=== PATIENT | female | born 1975 | race Caucasian/White ===

== ENCOUNTER → 2017-02-13 | Outpatient (CLI) | payer BC | END | disposition home or self-care (01) | LOC: LABWHC1 15:11 | PROVIDERS: ATTEND Clinical Nurse Specialist Women's Health | DX: E03.9 Hypothyroidism, unspecified (principal); Z84.81 Family history of carrier of genetic disease | CPT/HCPCS: 36415; 84439; 84443; 84481 ==

== ENCOUNTER → 2017-02-27 | Outpatient (CLI) | payer BC | END | disposition home or self-care (01) | LOC: LABWHC1 12:55 | PROVIDERS: ATTEND Clinical Nurse Specialist Women's Health | DX: E03.9 Hypothyroidism, unspecified (principal); E72.12 Methylenetetrahydrofolate reductase deficiency; Z84.81 Family history of carrier of genetic disease | CPT/HCPCS: 36415; 81291 ==

== ENCOUNTER → 2017-08-21 | Outpatient (CLI) | payer BC ==
--- NOTE | 2017-08-22 10:36 | MM ---
Reason for exam: screening (asymptomatic). Last mammogram was performed 1 year and 10 months ago. History: Taking hormonal contraceptives beginning at age 14. Physical Findings: A clinical breast exam by your physician is recommended on an annual basis and results should be correlated with mammographic findings. MG Screening Mammo w CAD Bilateral CC and MLO view(s) were taken. Prior study comparison: October 22, 2015, bilateral MG screening mammo w CAD. The breast tissue is heterogeneously dense. This may lower the sensitivity of mammography. No significant changes when compared with prior studies. ASSESSMENT: Benign, BI-RAD 2 RECOMMENDATION: Routine screening mammogram of both breasts in 1 year.
== END | disposition home or self-care (01) ==
LOC: RADMAMWWP 16:40
PROVIDERS: ATTEND Obstetrics & Gynecology
DX: Z12.31 Encounter for screening mammogram for malignant neoplasm of breast (principal)

== ENCOUNTER → 2017-11-06 | Outpatient (CLI) | payer BC ==
[~2017-11-06] MED LIST: ALBUTEROL NEB (CONC) 2.5 MG/0.5 ML INHALATION ONE; LACTATED RINGERS 1,000 ML IV ONE; LIDOCAINE 2% (PF) 20 MG/ML 2 ML AMP INHALATION ONE
[2017-11-06 20:17] LABS: Clam IgE <0.10 kU/L; Codfish IgE <0.10 kU/L; Egg White IgE <0.10 kU/L; Peanut IgE <0.10 kU/L; Scallop IgE <0.10 kU/L; Shrimp IgE <0.10 kU/L; Soybean IgE <0.10 kU/L; Walnut IgE (Food) <0.10 kU/L
[2017-11-06 20:24] LABS: Alternaria alternata IgE <0.10 kU/L; Birch IgE <0.10 kU/L; Cat Epith & Dander IgE <0.10 kU/L; Cockroach IgE <0.10 kU/L; Dermato. farinae IgE <0.10 kU/L; Dog Dander IgE <0.10 kU/L; Elm IgE <0.10 kU/L; Maple (Box Elder) IgE <0.10 kU/L; Oak IgE <0.10 kU/L; Ragweed,Common IgE <0.10 kU/L; Red Top (Bentgrass) IgE <0.10 kU/L
== END | disposition home or self-care (01) ==
LOC: LABWHC1 11:39
PROVIDERS: ATTEND Internal Medicine Critical Care Medicine
DX: R05 Cough (principal); R06.02 Shortness of breath
CPT/HCPCS: 36415; 82785; 86003

== ENCOUNTER 2017-11-13 11:43 | Day surgery (SDC) | payer BC ==
[2017-11-08 14:45] VITALS: BMI 33.5
[~2017-11-13 11:43] MED LIST changes: -ALBUTEROL NEB (CONC) 2.5 MG/0.5 ML INHALATION ONE; +LACTATED RINGERS 1,000 ML IV SCH; -LIDOCAINE 2% (PF) 20 MG/ML 2 ML AMP INHALATION ONE
[2017-11-13 12:32] VITALS: RESP 16; TEMP 99.2
[2017-11-13] MEDS: LIDOCAINE 2% (PF) 20 MG/ML 2 ML AMP INHALATION ONE ×2 (12:43→12:48)
[2017-11-13] MEDS: ALBUTEROL NEB (CONC) 2.5 MG/0.5 ML INHALATION ONE ×2 (12:43→12:48)
[2017-11-13] MEDS ORDERED: LIDOCAINE 1% 20 ML VIAL (10MG/ML) FOR IV START INTRADERMA ONE (12:45)
[2017-11-13] MEDS ORDERED: KETAMINE 10 MG/ML 20 ML VIAL ONE (12:57)
[2017-11-13] MEDS ORDERED: LIDOCAINE 1% INJ 10MG/ML (20 ML MDV) ONE (12:57)
[2017-11-13] MEDS ORDERED: MIDAZOLAM 2 MG/2 ML VIAL ONE (12:57)
[2017-11-13] MEDS ORDERED: PROPOFOL 10 MG/ML 20 ML VIAL IV ONE (12:57)
[2017-11-13] MEDS ORDERED: GLYCOPYRROLATE 0.2 MG/ML 2 ML VIAL ONE (12:57)
[2017-11-13] MEDS ORDERED: LIDOCAINE 2% INJ 20 MG/ML INTRATRACH ONE ×2 (13:02→13:06)
[2017-11-13 14:00] VITALS: BP 115/79; PULSE 106
--- NOTE | 2017-11-13 14:22 | PCN ---
PROCEDURE NOTE PROCEDURE: Bronchoscopy airway examination, therapeutic lavage, BAL. PREOP DIAGNOSIS: Possible tracheal abnormality. POSTOP DIAGNOSIS: Normal airway exam, asthma. DESCRIPTION OF PROCEDURE: There was informed consent. There was universal timeout. The operators were Dr. Bravo and Dr. Toney. The patient's procedure took place in room #2 [facility]. After the patient was adequately sedated and being fully monitored, the bronchoscope was inserted through the right nostril. It passed through the right nasopharynx into the oropharynx. The hypopharynx was identified and topicalized. The hypopharyngeal structures including anterior commissure, true cords, false cords, arytenoids, piriform sinuses, right and left vallecula and epiglottis all appeared normal. After topicalization, the bronchoscope was pushed through the glottic opening into the trachea. Trachea appeared completely normal. Pictures were taken. There was no evidence of any tracheal stenosis or tracheomalacia. There was no lesion or abnormality. Tracheal santa was sharp. Right and left mainstem were topicalized. The right upper lobe and its 3 segments, right middle lobe and its 2 segments, right lower lobe and its 5 segments, left upper lobe proper and its 2 segments, lingula and its 2 segments and the left lower lobe and its 4 segments were all found to be normal. There were very mild bronchitis consistent with maybe mild asthma. There were no significant secretions. There was no dominant mass or tumor. The bronchoscope was wedged into the right middle lobe. BAL took place. The patient tolerated the procedure well. There was no immediate complication. The patient will be recovered. Specimen will be sent to the laboratory for analysis. MMODL / IJN: [id number] /
[2017-11-13 18:39] LABS: Appearance,BF Cloudy; Nucleated Cells, Body Fluid 55 /uL; RBC, Body Fluid 13 /uL
[2017-11-13 18:40] LABS: Mononuclear WBC,Body Fluid 94 %; Polynuclear WBC,Body Fluid 6 %; Total Cells Counted,Body Fluid 100
== END 2017-11-13 14:12 | disposition home or self-care (01) ==
LOC: ORWHC2ENDO 11:43
PROVIDERS: ATTEND Internal Medicine Critical Care Medicine
DX: J45.50 Severe persistent asthma, uncomplicated (principal); E03.9 Hypothyroidism, unspecified; K21.9 Gastro-esophageal reflux disease without esophagitis; E66.9 Obesity, unspecified; Z68.33 Body mass index [BMI] 33.0-33.9, adult; Z79.3 Long term (current) use of hormonal contraceptives; Z79.890 Hormone replacement therapy; Z79.899 Other long term (current) drug therapy; Z79.51 Long term (current) use of inhaled steroids; Z88.8 Allergy status to other drugs, medicaments and biological substances; Z91.048 Other nonmedicinal substance allergy status; Z87.891 Personal history of nicotine dependence
CPT/HCPCS: 81025; 88108; 88305; 89050; 87252; 87070; 87205; 87116; 87102; 87206; 31624; J2001 ×2; J2250; J2704; 87496; 87498; 87502; 87529; 87634; 87798

== ENCOUNTER → 2017-12-04 | Outpatient (CLI) | payer BC ==
[2017-12-04 09:26] LABS: Basophils % (A) 0 %; Eosinophils # (A) 0.3 k/uL (0-0.7); Eosinophils % (A) 5 %; HGB 13.8 gm/dL (11.4-16.0); Lymphocytes # (A) 1.4 k/uL (1.0-4.8); Lymphocytes % (A) 24 %; MCH 28.3 pg (25.0-35.0); MCHC 33.7 g/dL (31.0-37.0); MCV 84.2 fL (80.0-100.0); Mean Platelet Volume 6.9; Monocytes # (A) 0.4 k/uL (0-1.0); Monocytes % (A) 6 %; Neutrophils # (A) 3.7 k/uL (1.3-7.7); Neutrophils % (A) 62 %; Platelet Count 279 k/uL (150-450); RBC 4.87 m/uL (3.80-5.40); RDW 13.1 % (11.5-15.5); WBC 5.9 k/uL (3.8-10.6)
== END | disposition home or self-care (01) ==
LOC: LABWHC1 08:54
PROVIDERS: ATTEND Internal Medicine Critical Care Medicine
DX: J45.50 Severe persistent asthma, uncomplicated (principal)
CPT/HCPCS: 36415; 85025

== ENCOUNTER 2019-04-18 23:04 | Emergency (ER) | payer BC ==
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
[2019-04-19] MEDS ORDERED: IBUPROFEN 600 MG TAB PO STA (00:28)
[2019-04-19 00:48] VITALS: BP 145/90; PULSE 90; RESP 18; TEMP 98
== END 2019-04-19 00:51 | disposition home or self-care (01) ==
LOC: EC 23:04
DX: S01.01XA Laceration without foreign body of scalp, initial encounter (principal); J45.909 Unspecified asthma, uncomplicated; E07.9 Disorder of thyroid, unspecified; Z79.51 Long term (current) use of inhaled steroids; Z79.899 Other long term (current) drug therapy; Z87.891 Personal history of nicotine dependence; W20.8XXA Other cause of strike by thrown, projected or falling object, initial encounter; Y92.814 Boat as the place of occurrence of the external cause
CPT/HCPCS: 12001; 99282

== ENCOUNTER → 2019-09-09 | Outpatient (CLI) | payer BC ==
--- NOTE | 2019-09-11 08:46 | MM ---
Reason for exam: screening (asymptomatic). Last mammogram was performed 2 years and 1 month ago. History: Taking hormonal contraceptives beginning at age 14. Physical Findings: A clinical breast exam by your physician is recommended on an annual basis and results should be correlated with mammographic findings. MG Screening Mammo w CAD Bilateral CC and MLO view(s) were taken. Prior study comparison: August 21, 2017, bilateral MG screening mammo w CAD. October 22, 2015, bilateral MG screening mammo w CAD. The breast tissue is heterogeneously dense. This may lower the sensitivity of mammography. No suspicious abnormality. No significant changes when compared with prior studies. ASSESSMENT: Negative, BI-RAD 1 RECOMMENDATION: Routine screening mammogram of both breasts in 1 year.
== END | disposition home or self-care (01) ==
LOC: RADMAMWWP 07:30
PROVIDERS: ATTEND Obstetrics & Gynecology
DX: Z12.31 Encounter for screening mammogram for malignant neoplasm of breast (principal)
CPT/HCPCS: 77067

== ENCOUNTER → 2019-09-19 | Outpatient (CLI) | payer BC ==
--- NOTE | 2019-09-19 14:17 | ECHOS ---
STRESS ECHOCARDIOGRAM DATE OF SERVICE: 09/19/2019 INDICATIONS: Chest pain. MEDICATIONS: Ventolin, Symbicort, Spiriva, omeprazole. BASELINE HEART RATE: 83 BASELINE BLOOD PRESSURE: 116/63 MAXIMUM HEART RATE: 154 MAXIMUM BLOOD PRESSURE: 194/78 85% MPHR: 150 100% MPHR: 176 METS: 9.1 MAXIMUM STAGE REACHED: III TOTAL EXERCISE TIME: 7 minutes CLINICAL INFORMATION: STRESS DATA: Heart rate is 83, pressure 116/63 mmHg. Baseline EKG showed sinus rhythm. The patient exercised on the treadmill according to Dagoberto protocol for a total of 7 minutes and achieved 9.1 METs. Max heart rate was 154, which is about 87% of maximum predicted heart rate. Maximum blood pressure was 194/78 mmHg. Clinically the patient did not have any symptoms of chest pain or discomfort and the EKG did not show any significant ST or T-wave abnormalities concerning for ischemia. ECHOCARDIOGRAM IMAGES: On echocardiogram images from parasternal long axis view, parasternal short axis view, apical 4 chamber and apical 2 chamber were obtained at the baseline images, at the peak of the heart rate as well as on recovery and the echocardiogram images showed good augmentation in the left ventricular systolic function without any evidence of wall motion abnormalities concerning for ischemia. CONCLUSION: 1. Good exercise tolerance. 2. Normal EKG in response to exercise. 3. Normal echocardiogram in response to exercise. MMODL / IJN: [id number] /
== END | disposition home or self-care (01) ==
LOC: RADNMMAIN 08:55
PROVIDERS: ATTEND Family Medicine
DX: R94.31 Abnormal electrocardiogram [ECG] [EKG] (principal)
CPT/HCPCS: 93351

== ENCOUNTER → 2021-03-29 | Outpatient (CLI) | payer BC ==
--- NOTE | 2021-03-30 15:00 | MM ---
Reason for exam: screening (asymptomatic). Last mammogram was performed 1 year and 7 months ago. History: Taking hormonal contraceptives beginning at age 14. Physical Findings: A clinical breast exam by your physician is recommended on an annual basis and results should be correlated with mammographic findings. MG Screening Mammo w CAD Bilateral CC and MLO view(s) were taken. Prior study comparison: September 09, 2019, bilateral MG screening mammo w CAD. August 21, 2017, bilateral MG screening mammo w CAD. The breast tissue is heterogeneously dense. This may lower the sensitivity of mammography. Finding: There are 3-4 typically benign grouped/clustered calcifications in the right breast. New finding since August 21, 2017 and September 09, 2019. ASSESSMENT: Incomplete: need additional imaging evaluation, BI-RAD 0 RECOMMENDATION: Special view mammogram of the right breast. [facility] will attempt to contact patient to return for supplemental views.
== END | disposition home or self-care (01) ==
LOC: RADMAMWWP 07:25
PROVIDERS: ATTEND Obstetrics & Gynecology
DX: Z12.31 Encounter for screening mammogram for malignant neoplasm of breast (principal)
CPT/HCPCS: 77067

== ENCOUNTER → 2021-04-15 | Outpatient (CLI) | payer BC ==
--- NOTE | 2021-04-18 08:40 | MM ---
Reason for exam: additional evaluation requested from abnormal screening. Last mammogram was performed 1 month ago. History: Taking hormonal contraceptives beginning at age 14. Physical Findings: Nurse did not find any significant physical abnormalities on exam. MG Work Up Mamm w CAD RT Spot compression CC, spot compression LM, and LM view(s) were taken of the right breast. Prior study comparison: March 29, 2021, bilateral MG screening mammo w CAD. September 09, 2019, bilateral MG screening mammo w CAD. The breast tissue is heterogeneously dense. This may lower the sensitivity of mammography. There are a few calcifications medial right breast not changed since 2019 when accounting for differences in technique. These results were verbally communicated with the patient and result sheet given to the patient on 04/15/21. ASSESSMENT: Benign, BI-RAD 2 RECOMMENDATION: Return to routine screening mammogram schedule for both breasts.
== END | disposition home or self-care (01) ==
LOC: RADMAMWWP 13:44
PROVIDERS: ATTEND Obstetrics & Gynecology
DX: R92.8 Other abnormal and inconclusive findings on diagnostic imaging of breast (principal)
CPT/HCPCS: 77065

== ENCOUNTER 2022-03-05 00:25 | Emergency (ER) | payer BC ==
--- NOTE | 2022-03-05 01:23 | XR ---
EXAMINATION TYPE: XR knee complete LT DATE OF EXAM: 03/05/2022 COMPARISON: NONE HISTORY: Fall. Pain TECHNIQUE: 3 views FINDINGS: I see no fracture nor dislocation. Joint spaces are normal. No sign of a joint effusion. IMPRESSION: Negative left knee exam.
--- NOTE | 2022-03-05 01:45 | CT ---
EXAMINATION TYPE: CT brain cspine wo con DATE OF EXAM: 03/05/2022 COMPARISON: CT brain 08/21/2012 HISTORY: FALL, FACIAL LACS CT DLP: 1142.4 mGycm Automated exposure control for dose reduction was used. Images of brain and cervical spine obtained with no contrast. Ventricles of normal size. No mass effect or midline shift. No sign of intracranial hemorrhage. Josh rium is intact. There is normal aeration of the mastoid sinuses. Skull base is intact. Cervical vertebra have normal alignment. No compression fracture. Minimal spurring seen of the endpla shanita at C5-6 and C6-7. Facet joints are intact. IMPRESSION: Negative CT scan of the cervical spine. No evidence of traumatic injury. Negative CT scan of the brain. No adverse change.
[2022-03-05] MEDS ORDERED: ACETAMINOPHEN TAB 500 MG TAB PO STA (01:50)
[2022-03-05] MEDS ORDERED: LIDOCAINE/EPINEPHR/TETRACAINE 5 ML BOTTLE TOPICAL ONE (01:50)
--- NOTE | 2022-03-05 01:54 | CT ---
EXAMINATION TYPE: CT facial bones wo con DATE OF EXAM: 03/05/2022 COMPARISON: None HISTORY: FALL, FACIAL LACS CT DLP: 1142.4 mGycm Automated exposure control for dose reduction was used. Images obtained from the bottom of the mandible to the top of the frontal sinuses without contrast. The mandibular ring is intact. Temporomandibular joints are intact. Zygomatic arches appear normal. T he maxilla is intact. Nasal bone is intact. There is no evidence of orbital mass. No evidence of orbi laz blowout fracture. There is fairly normal aeration of the paranasal sinuses. IMPRESSION: Negative CT scan of the facial bones. No fracture seen.
[2022-03-05] MEDS ORDERED: BACITRACIN OINT 1 EACH PACKET TOPICAL ONE (01:56)
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
[2022-03-05] MEDS ORDERED: TOPICAL SKIN ADHESIVE 1 EACH AMP TOPICAL ONE (02:41)
[2022-03-05 03:32] VITALS: BP 100/65; PULSE 97; RESP 18; TEMP 97.9
== END 2022-03-05 03:31 | disposition home or self-care (01) ==
LOC: EC 00:25
DX: S01.81XA Laceration without foreign body of other part of head, initial encounter (principal); S80.212A Abrasion, left knee, initial encounter; J45.909 Unspecified asthma, uncomplicated; W01.0XXA Fall on same level from slipping, tripping and stumbling without subsequent striking against object, initial encounter
CPT/HCPCS: 70450; 70486; 72125

== ENCOUNTER → 2022-04-17 | Outpatient (CLI) | payer BC ==
--- NOTE | 2022-04-18 11:32 | MM ---
Reason for Exam: Screening (asymptomatic). Last mammogram was performed 1 year(s) and 1 month(s) ago. Patient History: Menarche at age 12. First Full-Term at age 27. Currently using Hormonal Contraceptives, starting at age 14. Risk Values: Janet 5 year model risk: 1.0%. NCI Lifetime model risk: 10.3%. Prior Study Comparison: 09/09/2019 Bilateral Screening Mammogram, [facility]. 03/29/2021 Bilateral Screening Mammogram, [facility]. 04/15/2021 Right Diagnostic Mammogram, [facility]. Tissue Density: The breast tissue is heterogeneously dense. This may lower the sensitivity of mammography. Findings: Analyzed By CAD. There is no suspicious group of microcalcifications or new suspicious mass in either breast. Overall Assessment: Benign, BI-RAD 2 Management: Screening Mammogram of both breasts in 1 year. A clinical breast exam by your physician is recommended on an annual basis and results should be correlated with mammographic findings. Electronically signed and approved by: Isrrael Simons M.D. Radiologis
== END | disposition home or self-care (01) ==
LOC: RADMAMWWP 10:34
PROVIDERS: ATTEND Obstetrics & Gynecology
DX: Z12.31 Encounter for screening mammogram for malignant neoplasm of breast (principal)
CPT/HCPCS: 77067

== ENCOUNTER → 2022-07-11 | Outpatient (CLI) | payer BC ==
[2022-07-11 10:25] LABS: Basophils # (A) 0.01 X 10*3/uL (0.00-0.10); Basophils % (A) 0.2 %; Eosinophils # (A) 0.52 X 10*3/uL (0.04-0.35); Eosinophils % (A) 7.9 %; HCT 39.7 % (37.2-46.3); HGB 13.6 g/dL (12.0-15.0); Immature Grans, Automated 0.3 %; Lymphocytes # (A) 1.44 X 10*3/uL (0.90-5.00); MCH 28.8 pg (27.0-32.0); MCHC 34.3 g/dL (32.0-37.0); MCV 84.1 fL (80.0-97.0); Mean Platelet Volume 10.7 fL (9.5-12.2); Monocytes # (A) 0.54 X 10*3/uL (0.20-1.00); Monocytes % (A) 8.2 %; NRBC Per 100 WBC 0 /100 WBCS (0.0-0.0); Neutrophils # (A) 4.02 X 10*3/uL (1.80-7.70); Neutrophils % (A) 61.4 %; Platelet Count 328 X 10*3/uL (140-440); RBC 4.72 X 10*6/uL (4.10-5.20); RDW 12.8 % (11.5-14.5); WBC 6.55 X 10*3/uL (4.50-10.00)
[2022-07-11 10:56] LABS: ALT 19 U/L (8-44); AST 20 U/L (13-35); African American GFR (CKD) 101.8 (60.0-200.0); Albumin 4.2 g/dL (3.8-4.9); Albumin/Globulin Ratio 1.91 (1.60-3.17); Alkaline Phosphatase 71 U/L (41-126); BUN/Creat Ratio 13.38 Ratio (12.00-20.00); Blood Urea Nitrogen 10.7 mg/dL (9.0-27.0); Calcium 9.1 mg/dL (8.7-10.3); Carbon Dioxide 27.5 mmol/L (20.0-27.5); Chloride 102 mmol/L (96-109); Chol/HDL Ratio 3.34 Ratio; Globulin 2.2 g/dL (1.6-3.3); Glucose 94 mg/dL (70-110); LDL Cholesterol,Calculated 112.6 mg/dL (0.0-131.0); Non-African American GFR(CKD) 87.8 (60.0-200.0); Potassium 3.6 mmol/L (3.5-5.5); Sodium 139 mmol/L (135-145); Total Protein 6.4 g/dL (6.2-8.2)
== END | disposition home or self-care (01) ==
LOC: LABWHC1 07:27
PROVIDERS: ATTEND Family Medicine
DX: Z00.00 Encounter for general adult medical examination without abnormal findings (principal); R73.03 Prediabetes; I10 Essential (primary) hypertension
CPT/HCPCS: 36415; 80053; 80061; 83036; 84439; 84443; 85025

== ENCOUNTER → 2023-05-23 | Outpatient (CLI) | payer BC ==
--- NOTE | 2023-05-24 08:02 | MM ---
Reason for Exam: Screening (asymptomatic). Last mammogram was performed 1 year(s) and 1 month(s) ago. Patient History: Menarche at age 12. First Full-Term at age 27. Premenopausal. Currently using Hormonal Contraceptives, starting at age 14. Last menstrual period: 05/22/2023 Risk Values: Janet 5 year model risk: 1.0%. NCI Lifetime model risk: 10.2%. Prior Study Comparison: 10/22/2015 Bilateral Screening Mammogram, [facility]. 08/21/2017 Bilateral Screening Mammogram, [facility]. 09/09/2019 Bilateral Screening Mammogram, [facility]. 03/29/2021 Bilateral Screening Mammogram, [facility]. 04/15/2021 Right Diagnostic Mammogram, [facility]. 04/17/2022 Bilateral MG screening mammo w CAD, [facility]. Tissue Density: The breast tissue is heterogeneously dense. This may lower the sensitivity of mammography. Findings: Analyzed By CAD. Increased focal asymmetric density 12:00 position left breast 4.6 cm from the nipple. Additional views are recommended. Disorganized breast tissue seen bilaterally. No suspicious calcifications present. Overall Assessment: Incomplete: need additional imaging evaluation, BI-RAD 0 Management: Diagnostic Mammogram of the left breast. . Patient should continue monthly self-breast exams. A clinical breast exam by your physician is recommended on an annual basis. This exam should not preclude additional follow-up of suspicious palpable abnormalities. Note on Janet scores and lifetime risk: 1. A Janet score greater than 3% is considered moderate risk. If this is the case, consider specialist referral to assess eligibility for a risk reducing agent. 2. If overall lifetime risk for the development of breast cancer is 20% or higher, the patient may qualify for future screening with alternating mammogram and breast MRI. Electronically signed and approved by: Dandre Baxter M.D. Radiologis
== END | disposition home or self-care (01) ==
LOC: RADMAMWWP 09:00
PROVIDERS: ATTEND Obstetrics & Gynecology
DX: Z12.31 Encounter for screening mammogram for malignant neoplasm of breast (principal)
CPT/HCPCS: 77063; 77067

== ENCOUNTER → 2023-05-30 | Outpatient (CLI) | payer BC ==
--- NOTE | 2023-05-30 11:09 | MM ---
Reason for Exam: Additional evaluation requested from abnormal screening. Last screening mammogram was performed less than 1 month ago. Patient History: Menarche at age 12. First Full-Term at age 27. Premenopausal. Currently using Hormonal Contraceptives, starting at age 14. Risk Values: Janet 5 year model risk: 1.0%. NCI Lifetime model risk: 10.2%. Prior Study Comparison: 03/29/2021 Bilateral Screening Mammogram, [facility]. 04/15/2021 Right Diagnostic Mammogram, [facility]. 04/17/2022 Bilateral MG screening mammo w CAD, [facility]. 05/23/2023 Bilateral MG 3D screening mammo w/cad, [facility]. Tissue Density: Left: The breast tissue is heterogeneously dense. This may lower the sensitivity of mammography. Findings: Analyzed By CAD. No significant changes when compared with prior studies. Upper outer quadrant asymmetry does not persist on additional views. Overall Assessment: Benign, BI-RAD 2 Management: Screening Mammogram of both breasts in 1 year. A clinical breast exam by your physician is recommended on an annual basis and results should be correlated with mammographic findings. This exam should not preclude additional follow-up of suspicious palpable abnormalities. Results were given to the patient verbally at the time of exam. Electronically signed and approved by: Fiordaliza Tovar M.D. Radiologist
== END | disposition home or self-care (01) ==
LOC: RADMAMWWP 10:27
PROVIDERS: ATTEND Obstetrics & Gynecology
DX: R92.8 Other abnormal and inconclusive findings on diagnostic imaging of breast (principal)
CPT/HCPCS: 77061; 77065

== ENCOUNTER → 2024-07-01 | Outpatient (CLI) | payer BC ==
--- NOTE | 2024-07-02 12:14 | MM ---
Reason for Exam: Screening (asymptomatic). Last mammogram was performed 1 year(s) and 2 month(s) ago. Patient History: Menarche at age 12. First Full-Term at age 27. Premenopausal. Currently using Hormonal Contraceptives, starting at age 14. Last menstrual period: 06/16/2024 Risk Values: Janet 5 year model risk: 1.0%. NCI Lifetime model risk: 10.0%. Prior Study Comparison: 04/17/2022 Bilateral MG screening mammo w CAD, [facility]. 05/23/2023 Bilateral MG 3D screening mammo w/cad, [facility]. 05/30/2023 Left MG 3D work up w/cad LT, [facility]. Tissue Density: The breasts are heterogeneously dense, which may obscure small masses. Findings: Analyzed By CAD. There is no suspicious group of microcalcifications or new suspicious mass in either breast. Overall Assessment: Benign, BI-RAD 2 Management: Screening Mammogram of both breasts in 1 year. . Patient should continue monthly self-breast exams. A clinical breast exam by your physician is recommended on an annual basis. This exam should not preclude additional follow-up of suspicious palpable abnormalities. Note on Janet scores and lifetime risk: 1. A Janet score greater than 3% is considered moderate risk. If this is the case, consider specialist referral to assess eligibility for a risk reducing agent. 2. If overall lifetime risk for the development of breast cancer is 20% or higher, the patient may qualify for future screening with alternating mammogram and breast MRI. [facility], , 07/02/2024 12:11 PM. Electronically signed and approved by: Dandre Baxter M.D. Radi[facility]
== END | disposition home or self-care (01) ==
LOC: RADMAMWWP 09:54
PROVIDERS: ATTEND Obstetrics & Gynecology
CPT/HCPCS: 77063; 77067